=== PATIENT | female | born 1935 | race Caucasian/White ===

== ENCOUNTER → 2017-11-26 | Day surgery (SDC) | payer BC ==
--- NOTE | 2017-11-27 11:10 | PATH ---
Surgical Pathology Report Patient Name: [facility]. Rec. #: [id number] /Age/Gender: 1935 (Age: 82) / F Account: [id number] Location: [facility] Taken: 11/26/2017 Received: 11/26/2017 Reported: 11/27/2017 Physicians: Blanca Leo M.D. Specimen(s) Received LEFT BREAST CORE BIOPSY Clinical History Nonpalpable lesion Ultrasound findings: Cystic lesion Final Diagnosis BREAST, LEFT,12:00-12;30, ULTRASOUND GUIDED CORE BIOPSY: BENIGN BREAST TISSUE WITH CYST FORMATION AND APOCRINE METAPLASIA. Electronically Signed Ailyn Morrison M.D. Gross Description Received in formalin labeled "left 12:00 to 12:30," are 6 fragments of fibroadipose tissue ranging from 0.2-1.0 cm in length and averaging 0.1 cm in diameter. The specimens are submitted in toto in one cassette. Time to formalin fixation: Less than one minute Total formalin fixation time: Approximately 7 hours. 11/26/201711/26/2017
== END | disposition home or self-care (01) ==
LOC: JRADUS-SUR 10:31
PROVIDERS: ATTEND Internal Medicine
PROC: 0HBU3ZX Excision of Left Breast, Percutaneous Approach, Diagnostic (ICD-10-PCS; principal; 2017-11-26)
DX: D24.2 Benign neoplasm of left breast (principal)
CPT/HCPCS: 19083; 87899; 88305-TC; A4648